=== PATIENT | male | born 1935 | race Caucasian/White ===

== ENCOUNTER 2018-05-12 22:10 | Outpatient (CLI) | payer MEDICARE, BC | END 2018-05-12 22:11 | disposition critical access hospital (66) | LOC: EMS 22:10 | PROVIDERS: ATTEND Surgery | DX: R41.82 Altered mental status, unspecified (principal); R47.81 Slurred speech | CPT/HCPCS: A0425; A0429 ==

== ENCOUNTER 2018-05-12 22:24 | Emergency (ER) | payer MEDICARE, BC ==
[2018-05-12 23:09] LABS: BASOPHILS % (AUTO) 0.6 %; EOSINOPHILS # (AUTO) 0.2 10^3/uL (0.0-0.7); HGB - HEMOGLOBIN 15.6 g/dL (14.0-18.0); LYMPHOCYTES # (AUTO) 2.8 10^3/uL (1.5-3.5); LYMPHOCYTES % (AUTO) 36.3 %; MEAN CORPUSCULAR HEMOGLOBIN 29.3 pg (27.0-31.0); MEAN CORPUSCULAR HGB CONC 33.8 g/dL (32.0-36.0); MEAN CORPUSCULAR VOLUME 86.8 fL (80.0-94.0); MEAN PLATELET VOLUME 6.7 fL (7.4-11.4); MONOCYTES % (AUTO) 13.1 %; NEUTROPHILS # (AUTO) 3.7 10^3/uL (1.5-6.6); PLT - PLATELET COUNT 285 10^3/uL (130-450); RED BLOOD COUNT 5.34 10^6/uL (4.70-6.10); RED CELL DISTRIBUTION WIDTH 14.5 % (12.0-15.0); WHITE BLOOD COUNT 7.6 x10^3/uL (4.8-10.8)
[2018-05-12 23:15] LABS: PT - PROTHROMBIN TIME 11.2 secs (9.9-12.6)
[2018-05-12 23:21] LABS: MUDS CUTOFF CONCENTRATIONS CUTOFF CONC BELOW:
[2018-05-12 23:24] LABS: ALBUMIN/GLOBULIN RATIO 1.3 (1.0-2.2); ALKALINE PHOSPHATASE 69 IU/L (42-121); ALT ALANINE AMINOTRANSFERASE 28 IU/L (10-60); AST ASPARTATE AMINOTRANSFERASE 27 IU/L (10-42); BILIRUBIN,TOTAL 0.7 mg/dL (0.2-1.0); BUN - BLOOD UREA NITROGEN 21 mg/dL (6-20); CALCIUM 9.5 mg/dL (8.5-10.3); CARBON DIOXIDE - CO2 28 mmol/L (21-32); CHLORIDE 97 mmol/L (101-111); GFR - MDRD 72 (>89); GLUCOSE 113 mg/dL (70-100); LIPASE 29 U/L (22-51); SALICYLATE < 6.0 mg/dL; SODIUM 132 mmol/L (135-145); TOTAL PROTEIN 7.2 g/dL (6.7-8.2)
--- NOTE | 2018-05-12 23:25 | ED Physician Documentation ---
History of Present Illness - Stated complaint Stated Complaint: GLF, GIBSON, AMS, SLURRED SPEECH - Chief complaint Chief Complaint: Neuro - History obtained from History obtained from: Patient, Family, EMS - Additonal information Additional information: 82-year-old male was brought to the emergency department for evaluation of a possible stroke. The patient was last normal at 9:30 PM. The patient's heard a thud and found the patient on the floor confused not answering questions and not using his left leg. Now, the patient is able to answer questions and has no motor or sensory weakness. The patient does have a history of recurrent headaches and had his normal headache today. No reports of chest pain, shortness of breath, fever, chills or pain. Presently the patient has no symptoms. No specific triggering factors. Symptoms resolved on their own. Symptoms when they occurred were severe. Review of Systems Constitutional: denies: Fever, Chills Eyes: reports: Loss of vision (The patient had an episode last week where he had vision loss in his left eye and was seen by ophthalmology and they were concerned about a TIA at that time. Presently the patient has no changes in his vision) Ears: denies: Ear pain Nose: denies: Congestion Throat: denies: Sore throat Cardiac: denies: Palpitations Respiratory: denies: Cough GI: denies: Abdominal Pain : denies: Dysuria Skin: denies: Laceration (s) Neurologic: reports: Focal weakness, Difficulty speaking, Confused, Headache. denies: Head injury PD PAST MEDICAL HISTORY - Past Medical History Past Medical History: Yes Cardiovascular: Hypertension Endocrine/Autoimmune: HyPOthyroidism - Past Surgical History Past Surgical History: Yes General: Hiatal hernia repair Cardiovascular: CABG - Present Medications Home Medications: Ambulatory Orders Medication Instructions Recorded Confirmed Donepezil [Aricept] 10 mg PO DAILY 05/12/18 05/12/18 Levothyroxine Sodium [Levoxyl] 150 mcg PO DAILY 05/12/18 05/12/18 Metoprolol Succinate 25 mg PO DAILY 05/12/18 05/12/18 Montelukast Sodium 10 mg PO DAILY 05/12/18 05/12/18 Temazepam [Restoril] 30 mg PO QPM 05/12/18 05/12/18 - Allergies Allergies/Adverse Reactions: Allergies Allergy/AdvReac Type Severity Reaction Status Date / Time lisinopril AdvReac Mild cough Verified 05/12/18 23:28 - Social History Does the pt smoke?: Yes Smoking Status: Former smoker Does the pt drink ETOH?: No Does the pt have substance abuse?: No - Immunizations Immunizations are current?: Yes PD ED PE NORMAL - General General: Alert and oriented X 3, No acute distress - HEENT HEENT: Atraumatic, PERRL, EOMI, Ears normal - Neck Neck: Supple, no meningeal sign - Cardiac Cardiac: RRR, Strong equal pulses - Respiratory Respiratory: No respiratory distress - Abdomen Abdomen: Soft, Non tender, Non distended - Derm Derm: Normal color, Warm and dry - Extremities Extremities: No deformity, Normal ROM s pain, No edema - Neuro Neuro: Alert and oriented X 3, outside rigger 2-12 intact, No motor deficit, No sensory deficit, Other (The patient's face is symmetric, the patient's tongue is midline and the patient has normal sensation in the face. Cranial nerves II through XII are intact. The patient has equal soft tile setter strength bilaterally. The patient's pronator drift was negative in the upper and lower extremities. The patient had normal sensation light touch in the upper and lower extremities. The patient's speech is slightly slurred but according to the she does not notice any abnormality in the patient's speech. The patient's memory appears intact). No: Normal speech Results - Vitals Vitals: Vital Signs - 24 hr 05/12/18 05/12/18 05/13/18 22:25 23:02 00:00 Temperature 36.7 C Heart Rate 72 62 61 Respiratory 15 18 16 Rate Blood Pressure 162/94 H 172/109 H 168/96 H O2 Saturation 98 98 96 Oxygen O2 Source Room air - Labs Labs: Laboratory Tests 05/12/18 05/12/18 05/12/18 23:04 23:04 23:04 WBC 7.6 RBC 5.34 Hgb 15.6 Hct 46.3 MCV 86.8 MCH 29.3 MCHC 33.8 RDW 14.5 Plt Count 285 MPV 6.7 L Neut # (Auto) 3.7 Lymph # (Auto) 2.8 Rapides # (Auto) 1.0 Eos # (Auto) 0.2 Baso # (Auto) 0.0 Absolute Nucleated RBC 0.01 Nucleated RBC % 0.1 PT 11.2 INR 1.0 APTT 28.4 Sodium Potassium Chloride Carbon Dioxide Anion Gap BUN Creatinine Estimated GFR (MDRD) Glucose Calcium Total Bilirubin AST ALT Alkaline Phosphatase CK-MB (CK-2) 2.3 Troponin I Total Protein Albumin Globulin Albumin/Globulin Ratio Lipase Urine Color Urine Clarity Urine pH Ur Specific [place] Urine Protein Urine Glucose (UA) Urine Ketones Urine Occult Blood Urine Nitrite Urine Bilirubin Urine Urobilinogen Ur Leukocyte Esterase Ur Microscopic Review Urine Culture Comments Salicylates Urine Opiates Screen Ur Oxycodone Screen Urine Methadone Screen Ur Propoxyphene Screen Acetaminophen Ur Barbiturates Screen Ur Tricyclics Screen Ur Phencyclidine Scrn Ur Amphetamine Screen U Methamphetamines Scrn U Benzodiazepines Scrn Urine Cocaine Screen U Cannabinoids Screen Ethyl Alcohol 05/12/18 05/12/18 05/12/18 23:04 23:04 23:15 WBC RBC Hgb Hct MCV MCH MCHC RDW Plt Count MPV Neut # (Auto) Lymph # (Auto) Rapides # (Auto) Eos # (Auto) Baso # (Auto) Absolute Nucleated RBC Nucleated RBC % PT INR APTT Sodium 132 L Potassium 4.2 Chloride 97 L Carbon Dioxide 28 Anion Gap 7.0 BUN 21 H Creatinine 1.0 Estimated GFR (MDRD) 72 L Glucose 113 H Calcium 9.5 Total Bilirubin 0.7 AST 27 ALT 28 Alkaline Phosphatase 69 CK-MB (CK-2) Troponin I < 0.04 Total Protein 7.2 Albumin 4.0 Globulin 3.2 Albumin/Globulin Ratio 1.3 Lipase 29 Urine Color YELLOW Urine Clarity CLEAR Urine pH 6.0 Ur Specific [place] 1.020 Urine Protein NEGATIVE Urine Glucose (UA) NEGATIVE Urine Ketones TRACE Urine Occult Blood NEGATIVE Urine Nitrite NEGATIVE Urine Bilirubin NEGATIVE Urine Urobilinogen 0.2 (NORMAL) Ur Leukocyte Esterase NEGATIVE Ur Microscopic Review NOT INDICATED Urine Culture Comments NOT INDICATED Salicylates < 6.0 Urine Opiates Screen NEGATIVE Ur Oxycodone Screen NEGATIVE Urine Methadone Screen NEGATIVE Ur Propoxyphene Screen NEGATIVE Acetaminophen < 10 L Ur Barbiturates Screen NEGATIVE Ur Tricyclics Screen NEGATIVE Ur Phencyclidine Scrn NEGATIVE Ur Amphetamine Screen NEGATIVE U Methamphetamines Scrn NEGATIVE U Benzodiazepines Scrn POSITIVE H Urine Cocaine Screen NEGATIVE U Cannabinoids Screen NEGATIVE Ethyl Alcohol < 5.0 - Rads (name of study) CT HEAD Radiology: Final report received PD MEDICAL DECISION MAKING - ED course ED course: The patient's findings, presentation and recent vision issues were discussed with the on-call stroke neurologist from [facility]. She agrees that this represents a TIA and currently since the patient's symptoms resolved he is not a candidate for TPA. She agrees with the plan for admission for further observation and workup. She recommends a CT angiogram of the head and neck. Currently, our facility does not have the capability to perform MRI, the neurologist does not feel that the patient requires urgent transfer for an MRI. She feels that the other studies can be performed now and the patient can have an MRI as an outpatient. She recommends contacting her back for any changes or any further questions. The findings and plan were discussed with the patient and family who understand and agree to the plan The case was discussed with the hospitalist Dr. Davis who accepts the patient onto her service - Sepsis Event Vital Signs: Vital Signs - 24 hr 05/12/18 05/12/18 05/13/18 22:25 23:02 00:00 Temperature 36.7 C Heart Rate 72 62 61 Respiratory 15 18 16 Rate Blood Pressure 162/94 H 172/109 H 168/96 H O2 Saturation 98 98 96 Oxygen O2 Source Room air Departure - Departure Disposition: ED Place in Observation Clinical Impression: TIA (transient ischemic attack) Condition: Good
[2018-05-12 23:26] LABS: ACETAMINOPHEN < 10 ug/mL (10-30)
[2018-05-12 23:26] LABS: BILIRUBIN,URINE NEGATIVE (NEGATIVE); GLUCOSE, URINE (UA) NEGATIVE (NEGATIVE); KETONES,URINE (UA) TRACE mg/dL (NEGATIVE); LEUKOCYTE ESTERASE, URINE NEGATIVE (NEGATIVE); NITRITE,URINE NEGATIVE (NEGATIVE); OCCULT BLOOD,URINE NEGATIVE (NEGATIVE); PROTEIN,URINE NEGATIVE (NEGATIVE); UROBILINOGEN,URINE 0.2 (NORMAL) E.U./dL (NORMAL)
[2018-05-12 23:27] LABS: CLARITY,URINE CLEAR (CLEAR)
[2018-05-12 23:37] LABS: AMPHETAMINE SCREEN,URINE NEGATIVE (NEGATIVE); BENZODIAZEPINES SCREEN, URINE POSITIVE (NEGATIVE); COCAINE SCREEN URINE NEGATIVE (NEGATIVE); METHADONE SCREEN, URINE NEGATIVE (NEGATIVE); METHAMPHETAMINES SCREEN, URINE NEGATIVE (NEGATIVE); OPIATE SCREEN, URINE NEGATIVE (NEGATIVE); OXYCODONE SCREEN, URINE NEGATIVE (NEGATIVE); PROPOXYPHENE SCREEN, URINE NEGATIVE (NEGATIVE); TRICYCLIC ANTIDEPRESSANT,URINE NEGATIVE (NEGATIVE)
[2018-05-13] MEDS ORDERED: IOPAMIDOL-300 100 ML VIAL ONE (00:52)
[2018-05-13] MEDS ORDERED: IOPAMIDOL-300 100 ML VIAL IVP ONE (01:37)
[2018-05-13] MEDS ORDERED: HEPARIN 25000UNITS/500ML (D5W) 25,000 UNIT/500 ML BAG IV SCH (03:00)
[2018-05-13 04:39] VITALS: BP 162/93
--- NOTE | 2018-05-14 15:32 | CT Report ---
Reason: TIA symptoms Procedure Date: 05/13/2018 Accession Number: [id number] / [id number] Procedure: CT - Neck Angio CPT Code: FULL RESULT: EXAM: CT ANGIOGRAM HEAD AND NECK. CT SCAN HEAD WITH CONTRAST. EXAM DATE:05/13/2018 01:15 AM. CLINICAL HISTORY:Speech difficulty, left lower extremity weakness, now resolved. COMPARISON:None. TECHNIQUE: Routine axial helical CTA imaging was performed from the aortic arch through the [place] of [place]. Routine axial CT imaging of the head was performed prior to and following contrast administration. Reconstructions: Routine multiplanar 3D MIP reconstructions. IV contrast: ISOVUE 300 80mL. NASCET Criteria are used for stenosis measurements. In accordance with CT protocol optimization, one or more of the following dose reduction techniques were utilized for this exam: automated exposure control, adjustment of mA and/or KV based on patient size, or use of iterative reconstructive technique. FINDINGS: CT SCAN HEAD with contrast: No abnormal enhancement. CT ANGIOGRAM EXTRACRANIAL CIRCULATION: The visualized arch is unremarkable. Great vessels are patent and unremarkable. Right Carotid: Mild calcification about the right carotid bulb without stenosis. Left Carotid: Mild calcification about the left carotid bulb without stenosis. Vertebrals: Vertebral arteries are patent throughout the neck, right is larger than the left. Left arises directly from the aortic arch, a common normal variant. CT ANGIOGRAM INTRACRANIAL CIRCULATION: Dominant right vertebral artery. Basilar artery and both posterior cerebral arteries are patent. Posterior communicating arteries are not seen bilaterally. Atherosclerotic calcification of the right carotid siphon. There is roughly 50% stenosis of the supraclinoid right ICA. Right MCA and ORALIA vessels are patent and unremarkable. There is a patent anterior communicating artery. Best appreciated on series 4 image 565 is a filling defect within the proximal intracavernous left ICA. This is nonocclusive and measures 9.6 mm AP by 3 mm transverse. An additional, smaller endoluminal filling defect is seen or distally on image 568, measuring roughly 4 mm in diameter. There is atherosclerotic narrowing of the supraclinoid left ICA without definite flow-limiting stenosis. There is a small outpouching of the supraclinoid left ICA measuring roughly 2.5 mm, infundibulum versus aneurysm. Left MCA is unremarkable. No M2 branch occlusion appreciated. The dural venous sinuses are patent. Other: A neurostimulator device is seen within the cervical spinal canal, eccentric to the left. Superiormost aspect opposite the level of C1. IMPRESSION: CT SCAN HEAD: No abnormal enhancement. CT ANGIOGRAM NECK: 1. No carotid or vertebral artery stenosis in the neck. No findings concerning for dissection. Left vertebral artery arises directly from the aortic arch, a common normal variant. 2. Neurostimulator device present within the cervical spinal canal CT ANGIOGRAM HEAD: 1. Roughly 50% stenosis supraclinoid right ICA. Right MCA appears unremarkable. 2. Best appreciated on series 4 image 565 is a filling defect within the proximal intracavernous left ICA, presumed thrombus. This is nonocclusive and measures 9.6 mm AP by 3 mm transverse. An additional, smaller endoluminal filling defect is seen or distally on image 568, measuring roughly 4 mm in diameter. There is atherosclerotic narrowing of the supraclinoid left ICA without definite flow-limiting stenosis. 3. There is a small outpouching of the supraclinoid left ICA measuring roughly 2.5 mm, infundibulum versus aneurysm. Differentiation not possible given the resolution of this technique. 4. Left MCA is unremarkable. No M2 branch occlusion appreciated. RADIA The above findings of left ICA intraluminal thrombus were discussed with Dr. Salazar by Dr. Alan Cobos at 02:24 hrs on 05/13/18.
--- NOTE | 2018-05-14 15:36 | CT Report ---
Reason: AMS Procedure Date: 05/12/2018 Accession Number: [id number] / [id number] Procedure: CT - Head W/O Stroke Protocol CPT Code: FULL RESULT: EXAM: CT HEAD EXAM DATE: 05/12/2018 10:38 PM. CLINICAL HISTORY: Confusion and right lower extremity weakness, now resolved. COMPARISON: None. TECHNIQUE: Multiaxial CT images were obtained from the foramen magnum to the vertex. Reformats: Sagittal and coronal. IV contrast: None. In accordance with CT protocol optimization, one or more of the following dose reduction techniques were utilized for this exam: automated exposure control, adjustment of mA and/or KV based on patient size, or use of iterative reconstructive technique. FINDINGS: Parenchyma: Questionable small, old cortical infarct right paracentral lobule. Old lacunar infarcts within the left putamen, anterior limb internal capsule on the left. Old lacunar infarct anterior limb right internal capsule. No hemorrhage. Extraaxial Spaces: Normal for age. No subdural or epidural collections identified. Ventricles: Normal in size and position. Sinuses and Orbits: Imaged paranasal sinuses, orbits, and mastoids show no significant abnormality. Bones: No evidence of fracture or calvarial defect. Other: None. IMPRESSION: Questionable small, old cortical infarct right paracentral lobule. Old lacunar infarcts within the left putamen, anterior limb internal capsule on the left. Old lacunar infarct anterior limb right internal capsule. No hemorrhage. ASPECTS 9 bilaterally. RADIA The above findings were discussed with Chaka Salazar by Dr. Alan Cobos at 23:08 hrs on 05/12/18.
== END 2018-05-13 05:42 | disposition short-term general hospital (02) ==
LOC: EDUNIT# → ED 22:24
DX: G45.9 Transient cerebral ischemic attack, unspecified (principal); R94.31 Abnormal electrocardiogram [ECG] [EKG]; I10 Essential (primary) hypertension; E03.9 Hypothyroidism, unspecified; Z95.1 Presence of aortocoronary bypass graft; Z87.891 Personal history of nicotine dependence
CPT/HCPCS: 36415; 70450; 70496; 70498; 71045; 80053; 81003; 82553; 83690; 84484; 85025; 85610; 85730; 93005; 96365; 96366; 99284; 99285; Q9967; 80306; 80307; 80320; 80329; 81001; 82550; 87086

== ENCOUNTER 2021-04-13 15:33 | Outpatient (CLI) | payer MEDICARE, BC | END 2021-04-13 15:34 | disposition home or self-care (01) | LOC: LAB.N 15:33 | PROVIDERS: ATTEND Family Medicine | DX: Z79.01 Long term (current) use of anticoagulants (principal); Z53.9 Procedure and treatment not carried out, unspecified reason ==

== ENCOUNTER 2021-05-22 11:17 | Outpatient (CLI) | payer MEDICARE, BC | END 2021-05-22 11:18 | disposition home or self-care (01) | LOC: LAB.N 11:17 | PROVIDERS: ATTEND Family Medicine | DX: Z79.01 Long term (current) use of anticoagulants (principal) | CPT/HCPCS: 85610 ==

== ENCOUNTER 2021-06-23 14:18 | Outpatient (CLI) | payer MEDICARE, BC | END 2021-06-23 14:19 | disposition home or self-care (01) | LOC: LAB.N 14:18 | PROVIDERS: ATTEND Family Medicine | DX: Z79.01 Long term (current) use of anticoagulants (principal) | CPT/HCPCS: 36416; 85610 ==

== ENCOUNTER 2021-07-30 13:35 | Outpatient (CLI) | payer MEDICARE, BC | END 2021-07-30 13:36 | disposition critical access hospital (66) | LOC: EMS 13:35 | DX: S81.812A Laceration without foreign body, left lower leg, initial encounter (principal); W01.198A Fall on same level from slipping, tripping and stumbling with subsequent striking against other object, initial encounter; Y93.E1 Activity, personal bathing and showering; Y92.002 Bathroom of unspecified non-institutional (private) residence as the place of occurrence of the external cause | CPT/HCPCS: A0425; A0429 ==

== ENCOUNTER 2021-07-30 13:56 | Emergency (ER) | payer MEDICARE, BC ==
--- NOTE | 2021-07-30 14:17 | ED Physician Documentation ---
History of Present Illness - Stated complaint Stated Complaint: L LEG LAC - Additonal information Additional information: Only 16 years [id number] male who has a history of previous CVA as well as [place] to the emergency department after a ground-level fall. He was in the show er and slipped on the wet floor. He sustained a rather large and deep laceration of his left lower extremity on the metal ridge of the shower floor. He has full recall of the events. Did not lose consciousness. Denies neck or head pain. He is anticoagulated on warfarin secondary to the above-mentioned medical history. Review of Systems Constitutional: denies: Fever, Chills Eyes: reports: Reviewed and negative Ears: reports: Reviewed and negative Nose: reports: Reviewed and negative Throat: reports: Reviewed and negative Cardiac: reports: Reviewed and negative Respiratory: reports: Reviewed and negative GI: reports: Reviewed and negative : reports: Reviewed and negative Skin: reports: Laceration (s) (left lower leg) Musculoskeletal: reports: Extremity pain (left lower leg). denies: Neck pain, Back pain Neurologic: denies: Generalized weakness, Focal weakness, Numbness PD PAST MEDICAL HISTORY - Past Medical History Cardiovascular: Hypertension Endocrine/Autoimmune: HyPOthyroidism - Past Surgical History Past Surgical History: Yes General: Hiatal hernia repair Cardiovascular: CABG - Present Medications Home Medications: Ambulatory Orders Medication Instructions Recorded Confirmed Donepezil [Aricept] 10 mg PO DAILY 05/12/18 05/12/18 Levothyroxine Sodium [Levoxyl] 150 mcg PO DAILY 05/12/18 05/12/18 Metoprolol Succinate 25 mg PO DAILY 05/12/18 05/12/18 Montelukast Sodium 10 mg PO DAILY 05/12/18 05/12/18 Temazepam [Restoril] 30 mg PO QPM 05/12/18 05/12/18 HYDROcod/ACETAM 5/325 [Wolverine 5/325] 1 tablet PO BID PRN #10 tablet 07/30/21 cephALEXin [Keflex] 500 mg PO Q6H #28 cap 07/30/21 - Allergies Allergies/Adverse Reactions: Allergies Allergy/AdvReac Type Severity Reaction Status Date / Time lisinopril AdvReac Mild cough Verified 07/30/21 14:24 - Social History Does the pt smoke?: Yes Smoking Status: Former smoker Does the pt drink ETOH?: No Does the pt have substance abuse?: No - Immunizations Immunizations are current?: Yes PD ED PE EXPANDED - General General: No acute distress - Cardiac Cardiac: Regular Rate, Radial strong equal, Pedal strong equal, Other (well healed sternotomy scar). No: Murmur Present - Respiratory Respiratory: Clear to ausultation nakita. No: Distress, Stridor - Abdomen Abdomen: Normal Bowel sounds. No: Tender to palpation - Back Back: Normal exam. No: Vertebral tenderness - Derm Derm: Laceration(s) (large V shaped laceration/avusion to extend thru SQ fat to the periosteum of the tibial of the lower leg) - Extremities Extremities: Pedal Pulses Present (1+ pedal pulse bilaterally; warm foot. BRISK cap refill) Results - Vitals Vitals: Vital Signs - 24 hr 07/30/21 14:05 Temperature 36.6 C Heart Rate 65 Respiratory 15 Rate Blood Pressure 119/67 O2 Saturation 99 Oxygen O2 Source Room air - Labs Labs: Laboratory Tests 07/30/21 07/30/21 07/30/21 14:27 14:27 14:27 WBC 7.8 RBC 4.71 Hgb 13.8 L Hct 42.0 MCV 89.2 MCH 29.3 MCHC 32.9 RDW 15.3 H Plt Count 211 MPV 8.8 Neut # (Auto) 5.6 Lymph # (Auto) 1.2 L Kent # (Auto) 0.9 Eos # (Auto) 0.1 Baso # (Auto) 0.0 Absolute Nucleated RBC 0.00 Nucleated RBC % 0.0 PT 27.1 H INR 2.4 H Sodium 134 L Potassium 4.6 Chloride 99 L Carbon Dioxide 23 Anion Gap 12.0 BUN 19 Creatinine 1.1 Estimated GFR (MDRD) 64 L Glucose 128 H Calcium 9.4 - Rads (name of study) CT head Radiology: Final report received (no acute intracranial defects) Cervical CT Radiology: Final report received (no fractures) left knee Radiology: Final report received (degenerative changes. no fracture) left tib fib Radiology: Final report received (no fracture) Procedures - Laceration (location) left lower leg Length in cm: 35 Wound type: Irregular, Flap, Into subcut fat, Into muscle, Contaminated, Exposure of bone Neurovascular status: Sensory intact Anesthesia: Lidocaine 1% Wound preparation: Hibiclens, Irrigated copiously NS, Debrided extensively, Wound explored, debridement of wound edges (traumatic laceration/avulsion), Multiple flaps aligned, Extensive undermining Skin layer closure: Carlos (28 placed) Other: Patient tolerated well, No complications, Dressing applied, Tetanus booster given PD MEDICAL DECISION MAKING - ED course Complexity details: reviewed results, d/w patient ED course: 85-year-old male presents the emergency department after ground-level fall in the shower when she slipped and fell to the floor. He denies that there was any syncope or fainting episode. He is anticoagulated on Coumadin secondary to history of previous CVA as well as a CABG. He presents rather well-appearing with no obvious focal neuro deficits his neurological exam is unremarkable. CT of the head and neck without acute fractures or intracranial findings. He did present with a very large laceration and deep tissue defect to the left lower leg extending to the periosteum of the lower tibia. X-ray of the knee and the tib-fib did not show any acute fractures. The deep tissue defect was discussed briefly with Dr. Mcmullen who did not recommend surgical closure in the OR. Patient was given 1 g of Ancef and after appropriate local anesthesia we were able to close the defect using a total of 28 carlos. This wound was ultimately covered with Mepitel. This wound was discussed at length with the patient and he understands the high risk for infection Rx for keflex was levied as well as limited Wolverine. pt was able to able to ambulate easly in the ED, a walker was given. pt advised close f/u with pcp; will require a wound referral. Advised to have dressing changed in 4 days, if unable to see pcp, will return to the ED. Emergent and sooner return precautions discussed I am prescribing a short course of short-acting opioid pain medication for this patient. I have reviewed the patients [employer] ATTENDANT and no concerning findings were noted. I have discussed that the opioids are for short term therapy only, and will not be refilled from the ED. Departure - Departure Disposition: 01 Home, Self Care Clinical Impression: Laceration of left leg Qualifiers: Encounter type: initial encounter Qualified Code(s): S81.812A - Laceration without foreign body, left lower leg, initial encounter Condition: Stable Record reviewed to determine appropriate education?: Yes Follow-Up: Lakhwinder Meyer MD [Primary Care Provider] - Prescriptions: cephALEXin [Keflex] 500 mg PO Q6H #28 cap HYDROcod/ACETAM 5/325 [Wolverine 5/325] 1 tablet PO BID PRN #10 tablet PRN Reason: Pain Comments: Alban traore were seen in the ER today for a very deep laceration and wound to your left lower leg that you got when you fell in the shower. The CT of your head and neck do not show any broken bones. The x-ray of your left knee and your left lower leg do not show any broken bones. This is a very large tissue defect that will take multiple weeks if not a few months to heal. It is at high risk of infection. You were given an injection o f an antibiotic today but it is important that you fill the prescription for the Keflex tomorrow and begin taking 4 times daily for the next week. The dressing that is in place should remain in place until Tuesday. I would like you to see your primary care doctor. He needs to make a referral for you to be seen at wound therapy. If you are unable to see your primary doctor you can return to the emergency department for a wound check but your primary doctor will still need to make the referral. Your prescriptions have been sent electronically to the [facility] in [place] I am prescribing a short course of narcotic pain medication for you. These are potentially dangerous and addictive medications that should be used carefully. These medications may constipate you. Take an [id number] stool softener (docusate) twice daily with plenty of water while taking these medications. If you go 24 hours without a bowel movement, take [id number] miralax, per package instructions. Do not drink or drive while taking these medications. If you received narcotic or sedating medications while in the emergency department, do not drive for 24 hours. Store this medication in a safe, secure place and out of reach of children. It is a violation of federal law to give or sell this medication to another person or to use in a manner other than prescribed. The ED will not refill narcotic prescriptions, including prescriptions lost or stolen. To dispose of unwanted medications: 1. [facility] [address] in [place] has a medication drop box. They accept prescription medications (in pill form) Tuesday through Tuesday 9:00 a.m. to 5:00 p.m. 2. The [facility] accepts prescription medications (in pill form only) for disposal year round. Call for more information. 3. Contact the [facility] for the next [facility] sponsored prescription drug collection event. , [phone], or [phone]; Note that many narcotic pain relievers also contain Tylenol/acetaminophen. Please ensure that your total dose of acetaminophen from all sources does not exceed 3 g (3000 mg) per day.
[2021-07-30 14:34] LABS: BASOPHILS % (AUTO) 0.3 %; EOSINOPHILS # (AUTO) 0.1 10^3/uL (0.0-0.7); EOSINOPHILS % (AUTO) 0.8 %; HGB - HEMOGLOBIN 13.8 g/dL (14.0-18.0); LYMPHOCYTES # (AUTO) 1.2 10^3/uL (1.5-3.5); LYMPHOCYTES % (AUTO) 15.7 %; MEAN CORPUSCULAR HEMOGLOBIN 29.3 pg (27.0-31.0); MEAN CORPUSCULAR HGB CONC 32.9 g/dL (32.0-36.0); MEAN CORPUSCULAR VOLUME 89.2 fL (80.0-94.0); MEAN PLATELET VOLUME 8.8 fL (7.4-11.4); MONOCYTES # (AUTO) 0.9 10^3/uL (0.0-1.0); MONOCYTES % (AUTO) 11.2 %; NEUTROPHILS # (AUTO) 5.6 10^3/uL (1.5-6.6); NEUTROPHILS % (AUTO) 71.4 %; PLT - PLATELET COUNT 211 10^3/uL (130-450); RED BLOOD COUNT 4.71 10^6/uL (4.70-6.10); RED CELL DISTRIBUTION WIDTH 15.3 % (12.0-15.0); WHITE BLOOD COUNT 7.8 x10^3/uL (4.8-10.8)
[2021-07-30 14:40] LABS: INR 2.4 (0.8-1.2); PT - PROTHROMBIN TIME 27.1 secs (9.9-12.6)
[2021-07-30 14:43] LABS: CALCIUM 9.4 mg/dL (8.5-10.3); CREATININE 1.1 mg/dL (0.6-1.2); POTASSIUM 4.6 mmol/L (3.5-5.0)
[2021-07-30] MEDS: BUFFERED LIDOCAINE 10 ML SYRINGE SUBQ STA (15:10)
[2021-07-30] MEDS: ceFAZolin 1 GM VIAL IM STA (15:15)
[2021-07-30] MEDS: HYDROmorphone 1 MG/ML CARPUJECT IVP STA (15:15)
[2021-07-30] MEDS: TETANUS/DIPHTHERIA/PERTUSSIS 0.5 ML SYRINGE IM ONE (15:41)
--- NOTE | 2021-07-30 15:55 | CT Report ---
PROCEDURE: CERVICAL SPINE WO INDICATIONS: anticoagulated; fall TECHNIQUE: Noncontrast 3 mm thick sections acquired from the skull base to the T4 level. Sagittal and coronal r eformats were then constructed. For radiation dose reduction, the following was used: automated exp osure control, adjustment of mA and/or kV according to patient size. COMPARISON: None. FINDINGS: Image quality: Excellent. Bones: No fractures or dislocations. Visualized superior ribs are intact. There are multilevel deg enerative changes of the cervical spine with disc space narrowing, osteophytes, and multilevel forami nal stenosis. A spinal stimulator lead extends into the cervical spine to the level of C2. Soft tissues: Prevertebral soft tissues are normal in thickness. No paravertebral hematomas. No ap ical pneumothoraces. The carotid arteries have atherosclerotic calcifications. IMPRESSION: 1. No acute rheumatic abnormality of the cervical spine. 2. Multilevel spondylosis of the cervical spine. Reviewed by: Ronn Ridley on 07/30/2021 3:54 PM PST Approved by: Ronn Ridley on 07/30/2021 3:54 PM PST Station ID: [id number]
--- NOTE | 2021-07-30 15:58 | CT Report ---
PROCEDURE: HEAD WO INDICATIONS: anticoagulated; fall TECHNIQUE: Noncontrast 4.5 mm thick angled axial sections acquired from the foramen magnum to the vertex. For r adiation dose reduction, the following was used: automated exposure control, adjustment of mA and/or kV according to patient size. COMPARISON: None. FINDINGS: Image quality: Excellent. CSF spaces: Basal cisterns are patent. No extra-axial fluid collections. Ventricles are normal in size and shape. Brain: No midline shift. No intracranial masses or hemorrhage. Thayer-white matter interface is norm al. Subcortical and periventricular hypodensities are consistent with microvascular ischemic disease . Microvascular ischemic disease and age-related cerebral volume loss. Skull and face: Calvarium and visualized facial bones are intact, without suspicious lesions. Sinuses: Visualized sinuses and mastoids are clear. IMPRESSION: 1. No acute intracranial abnormality. 2. Microvascular ischemic disease and age-related cerebral volume loss. Reviewed by: Ronn Ridley on 07/30/2021 3:56 PM PST Approved by: Ronn Ridley on 07/30/2021 3:56 PM PST Station ID: [id number]
--- NOTE | 2021-07-30 16:00 | XRAY Report ---
PROCEDURE: Knee 3 View LT INDICATIONS: anticoagulated fall TECHNIQUE: 3 views of the left knee(s) were acquired. COMPARISON: None. FINDINGS: Bones: There are degenerative changes of the left knee. Calcifications in the articular space consis tent with chondrocalcinosis. Surgical clips along the medial left knee. No fractures or dislocations. No suspicious bony lesions. Soft tissues: No joint effusion. Vasculature has atherosclerotic calcifications. IMPRESSION: Degenerative changes of the left knee. No acute abnormality. Reviewed by: Ronn Ridley on 07/30/2021 3:58 PM PST Approved by: Ronn Ridley on 07/30/2021 3:58 PM PST Station ID: [id number]
--- NOTE | 2021-07-30 16:01 | XRAY Report ---
PROCEDURE: Tib/Fib LT INDICATIONS: pain; fall TECHNIQUE: 2 views of the tibia and fibula were acquired. COMPARISON: None FINDINGS: Bones: No fractures or dislocations. No suspicious bony lesions. Soft tissues: No suspicious soft tissue calcifications or masses. No radiopaque foreign bodies. Sof t tissue injury over the left distal leg is noted. IMPRESSION: Soft tissue injury of the distal left leg with no radiopaque foreign bodies. Reviewed by: Ronn Ridley on 07/30/2021 4:00 PM PST Approved by: Ronn Ridley on 07/30/2021 4:00 PM [facility] Station ID: [id number]
[2021-07-30] MEDS: HYDROmorphone 1 MG/ML CARPUJECT IM STA (16:03)
[2021-07-30 16:26] VITALS: BP 155/88
== END 2021-07-30 18:03 | disposition home or self-care (01) ==
LOC: EDUNIT# → ED 13:56
DX: S81.812A Laceration without foreign body, left lower leg, initial encounter (principal); W01.0XXA Fall on same level from slipping, tripping and stumbling without subsequent striking against object, initial encounter; Y93.E1 Activity, personal bathing and showering; Y92.002 Bathroom of unspecified non-institutional (private) residence as the place of occurrence of the external cause; Z79.01 Long term (current) use of anticoagulants; Z87.891 Personal history of nicotine dependence
CPT/HCPCS: 13121; 13122; 36415; 70450; 72125; 73562; 73590; 80048; 85025; 85610; 90471; 90715; 96372; 96374; 99283; 99284; J1170

== ENCOUNTER 2021-08-03 13:07 | Emergency (ER) | payer MEDICARE, BC ==
[2021-08-03 13:16] VITALS: BP 110/86
--- NOTE | 2021-08-03 15:13 | ED Physician Documentation ---
PD HPI LOWER EXT INJURY - Stated complaint Stated Complaint: LT LEG INJ SWELLING - Chief complaint Chief Complaint: Ext Problem - History obtained from History obtained from: Patient - Additional information Additional information: 85-year-old gentleman had a left leg injury about 5 days ago with a complicated anterior left knight laceration that was closed. He went to walk-in clinic today for dressing replacement and was referred to the emergency department because they felt it looks bad. He denies increased pain, has mild drainage from the wound. No fevers. Review of Systems Constitutional: reports: Reviewed and negative Eyes: reports: Reviewed and negative Ears: reports: Reviewed and negative Nose: reports: Reviewed and negative PD PAST MEDICAL HISTORY - Past Medical History Cardiovascular: Hypertension Endocrine/Autoimmune: HyPOthyroidism - Past Surgical History Past Surgical History: Yes General: Hiatal hernia repair Cardiovascular: CABG - Present Medications Home Medications: Ambulatory Orders Medication Instructions Recorded Confirmed Donepezil [Aricept] 10 mg PO DAILY 05/12/18 05/12/18 Levothyroxine Sodium [Levoxyl] 150 mcg PO DAILY 05/12/18 05/12/18 Metoprolol Succinate 25 mg PO DAILY 05/12/18 05/12/18 Montelukast Sodium 10 mg PO DAILY 05/12/18 05/12/18 Temazepam [Restoril] 30 mg PO QPM 05/12/18 05/12/18 HYDROcod/ACETAM 5/325 [[place] 5/325] 1 tablet PO BID PRN #10 tablet 07/30/21 cephALEXin [Keflex] 500 mg PO Q6H #28 cap 07/30/21 - Allergies Allergies/Adverse Reactions: Allergies Allergy/AdvReac Type Severity Reaction Status Date / Time lisinopril AdvReac Mild cough Verified 08/03/21 13:13 - Social History Does the pt smoke?: Yes Smoking Status: Former smoker Does the pt drink ETOH?: No Does the pt have substance abuse?: No - Immunizations Immunizations are current?: Yes PD ED PE NORMAL - Vitals Vital signs reviewed: Yes - General General: Alert and oriented X 3, No acute distress - Extremities Extremities: Other (He has a complicated laceration of the anterior left lower extremity that is closed with ryan. There is no dehiscence. He does have significant venous stasis changes. He does have good pedal pulses. No evidence of infection.) - Neuro Neuro: Alert and oriented X 3, Normal speech Results - Vitals Vitals: Vital Signs - 24 hr 08/03/21 13:13 Temperature 36.5 C Heart Rate 62 Respiratory 16 Rate Blood Pressure 110/86 H O2 Saturation 98 Oxygen O2 Source Room air PD MEDICAL DECISION MAKING - ED course ED course: This is a angelito 85-year-old gentleman who has a complicated wound of the left lower extremity that is healing well but anticipate a alex course given his age, history of vascular disease and the extent of his and location of the wound. A dressing was placed but advised that he call his primary care physician for wound care referral. Departure - Departure Disposition: Home, Self Care Clinical Impression: Laceration of left leg Qualifiers: Encounter type: initial encounter Qualified Code(s): S81.812A - Laceration without foreign body, left lower leg, initial encounter Condition: Good Record reviewed to determine appropriate education?: Yes Follow-Up: Lakhwinder Meyer MD [Primary Care Provider] - Comments: I do not see anything to worry some about the leg right now. Call Dr. Meyer's office and I would request a referral to wound care. Return as needed. Keep it elevated and do not bear weight until advised it is safe to do so.
== END 2021-08-03 15:25 | disposition home or self-care (01) ==
LOC: ED 13:07
DX: S81.812A Laceration without foreign body, left lower leg, initial encounter (principal); X58.XXXA Exposure to other specified factors, initial encounter; R22.42 Localized swelling, mass and lump, left lower limb; I87.8 Other specified disorders of veins; I10 Essential (primary) hypertension; Z87.891 Personal history of nicotine dependence
CPT/HCPCS: 99282; 99283

== ENCOUNTER 2021-08-18 15:04 | Outpatient (CLI) | payer MEDICARE, BC | END 2021-08-18 15:05 | disposition home or self-care (01) | LOC: LAB 15:04 | PROVIDERS: ATTEND Family Medicine | DX: Z79.01 Long term (current) use of anticoagulants (principal) | CPT/HCPCS: 36416; 85610 ==

== ENCOUNTER 2021-09-09 15:34 | Outpatient (CLI) | payer MEDICARE, BC ==
--- NOTE | 2021-09-09 16:24 | XRAY Report ---
PROCEDURE: Chest 2 View X-Ray INDICATIONS: COUGH TECHNIQUE: 2 view(s) of the chest. COMPARISON: May 12, 2018. FINDINGS: SUPPORT DEVICES: Sternotomy wires are well. LUNGS/PLEURA: Faint density in the right upper/midlung zone, which may reflect scarring/atelectasis. Mildly coarsened interstitial markings. No pleural effusion or space-occupying pneumothorax. MEDIASTINUM: The cardiomediastinal silhouette is within normal limits. BONES/SOFT TISSUES: No acute abnormality. IMPRESSION: 1.Faint density in the right upper/midlung zone, which may reflect scar/atelectasis. A developing pne umonic infiltrate cannot be excluded. Reviewed by: Jonathan Birmingham MD on 09/09/2021 4:22 PM PST Approved by: Jonathan Birmingham MD on 09/09/2021 4:22 PM PST Station ID: [id number]
== END 2021-09-09 15:35 | disposition home or self-care (01) ==
LOC: DI 15:34
PROVIDERS: ATTEND Family Medicine
DX: I10 Essential (primary) hypertension (principal); R91.8 Other nonspecific abnormal finding of lung field

== ENCOUNTER 2021-10-09 13:38 | Outpatient (CLI) | payer MEDICARE, BC ==
--- NOTE | 2021-10-09 16:44 | XRAY Report ---
PROCEDURE: Chest 2 View X-Ray INDICATIONS: PNEUMONIA TECHNIQUE: 2 view(s) of the chest. COMPARISON: 05/12/2018, 09/09/2021 FINDINGS: Surgical changes and devices: Multiple median sternotomy wires are intact. Neurostimulator leads are again noted and extend along the imaged portions of the lower cervical and thoracolumbar spine. Lungs and pleura: Persistent diffuse interstitial prominence, likely chronic in etiology. No pneumoth orax . No new focal consolidations. Persistent patchy left basilar and medial right basilar airspace opacities. Likely subsegmental atelectasis or scarring of the periphery right midlung zone. No substa ntial pleural effusion. Mediastinum: Mediastinal contours are normal. Heart size is normal. Bones and chest wall: No suspicious bony abnormalities. Soft tissues appear unremarkable. IMPRESSION: 1. Persistent patchy bibasilar airspace opacities without focal consolidation or new airspace opaciti es. 2. Persistent interstitial prominence likely chronic in etiology and may reflect background chronic i nterstitial lung disease. Recommend clinical correlation for resolution of symptoms. Consider short interval follow-up chest ra diograph in 4 weeks to document return to baseline exam. If findings do not significantly changed, fu rther evaluation with cross-sectional imaging may be considered. Reviewed by: Vinod Encinas MD on 10/09/2021 4:43 PM PST Approved by: Vinod Encinas MD on 10/09/2021 4:43 PM PST Station ID: [id number]
== END 2021-10-09 13:39 | disposition home or self-care (01) ==
LOC: DI 13:38
PROVIDERS: ATTEND Family Medicine
DX: J18.9 Pneumonia, unspecified organism (principal); R91.8 Other nonspecific abnormal finding of lung field

== ENCOUNTER 2021-12-31 14:25 | Emergency (ER) | payer MEDICARE, BC ==
[2021-12-31 14:58] LABS: BASOPHILS % (AUTO) 0.3 %; EOSINOPHILS # (AUTO) 0.1 10^3/uL (0.0-0.7); EOSINOPHILS % (AUTO) 0.5 %; HCT - HEMATOCRIT 40.1 % (42.0-52.0); HGB - HEMOGLOBIN 13.5 g/dL (14.0-18.0); LYMPHOCYTES # (AUTO) 1.6 10^3/uL (1.5-3.5); LYMPHOCYTES % (AUTO) 17.1 %; MEAN CORPUSCULAR HEMOGLOBIN 28.8 pg (27.0-31.0); MEAN CORPUSCULAR HGB CONC 33.7 g/dL (32.0-36.0); MEAN CORPUSCULAR VOLUME 85.7 fL (80.0-94.0); MEAN PLATELET VOLUME 8.8 fL (7.4-11.4); MONOCYTES % (AUTO) 10.7 %; NEUTROPHILS # (AUTO) 6.7 10^3/uL (1.5-6.6); NEUTROPHILS % (AUTO) 70.9 %; PLT - PLATELET COUNT 255 10^3/uL (130-450); RED BLOOD COUNT 4.68 10^6/uL (4.70-6.10); WHITE BLOOD COUNT 9.4 x10^3/uL (4.8-10.8)
[2021-12-31 15:19] LABS: ALBUMIN 3.7 g/dL (3.2-5.5); ALBUMIN/GLOBULIN RATIO 1.2 (1.0-2.2); BILIRUBIN,TOTAL 1.1 mg/dL (0.2-1.0); CALCIUM 9.3 mg/dL (8.5-10.3); CREATININE 1.3 mg/dL (0.6-1.2); POTASSIUM 4.3 mmol/L (3.5-5.0); TOTAL PROTEIN 6.8 g/dL (6.7-8.2)
[2021-12-31 15:23] LABS: INR 3.2 (0.8-1.2); PT - PROTHROMBIN TIME 35.1 secs (9.9-12.6)
[2021-12-31 15:31] LABS: PARTIAL THROMBOPLASTIN TIME 43.2 secs (24.9-33.3)
--- NOTE | 2021-12-31 16:10 | ED Physician Documentation ---
History of Present Illness - Stated complaint Stated Complaint: STROKE LIKE SYMPTOMS - Chief complaint Chief Complaint: Neuro - History obtained from History obtained from: Patient, Family - History of Present Illness Timing: Today Pain level max: 0 Pain level now: 0 - Additonal information Additional information: 86-year-old male who is brought in by his today for generalized weakness. She states that today when he got up to get out of bed he seemed weaker than usual and his legs were trembling. There was no focal neurological deficits. She states that he seemed very unsteady and off balance. She states similar symptoms about 5 years ago when he had a "stroke". He also had a mild headache today. No fevers. No chills. No nausea or vomiting. Currently asymptomatic. She states he is currently at his baseline. Unclear how long the symptoms lasted. Review of Systems Constitutional: denies: Fever, Chills Nose: denies: Rhinorrhea / runny nose, Congestion Throat: denies: Sore throat GI: denies: Vomiting, Diarrhea Skin: denies: Rash Musculoskeletal: denies: Neck pain, Back pain Neurologic: denies: Headache PD PAST MEDICAL HISTORY - Past Medical History Past Medical History: Yes Cardiovascular: Hypertension Endocrine/Autoimmune: HyPOthyroidism - Past Surgical History Past Surgical History: Yes General: Hiatal hernia repair Cardiovascular: CABG - Present Medications Home Medications: Ambulatory Orders Medication Instructions Recorded Confirmed Donepezil [Aricept] 10 mg PO DAILY 05/12/18 12/31/21 Levothyroxine Sodium [Levoxyl] 150 mcg PO DAILY 05/12/18 12/31/21 Metoprolol Succinate 25 mg PO DAILY 05/12/18 12/31/21 Montelukast Sodium 10 mg PO DAILY 05/12/18 12/31/21 Gabapentin [Neurontin] 1 tab PO TID 08/12/21 12/31/21 Atorvastatin Calcium [Lipitor] 1 tab PO DAILY 08/13/21 12/31/21 Multivitamin 1 each PO DAILY 08/13/21 12/31/21 - Allergies Allergies/Adverse Reactions: Allergies Allergy/AdvReac Type Severity Reaction Status Date / Time lisinopril AdvReac Mild cough Verified 12/31/21 14:38 - Social History Does the pt smoke?: Yes Smoking Status: Current every day smoker Does the pt drink ETOH?: No Does the pt have substance abuse?: No - Immunizations Immunizations are current?: Yes PD ED PE NORMAL - Vitals Vital signs reviewed: Yes - General General: Alert and oriented X 3, No acute distress - HEENT HEENT: PERRL, Moist mucous membranes - Neck Neck: Supple, no meningeal sign - Cardiac Cardiac: RRR, Strong equal pulses - Respiratory Respiratory: No respiratory distress, Clear bilaterally - Abdomen Abdomen: Soft, Non tender, Non distended - Derm Derm: Warm and dry - Extremities Extremities: No deformity - Neuro Neuro: Alert and oriented X 3, assembler ping pong table 2-12 intact, No motor deficit, No sensory deficit, Normal speech Eye Opening: Spontaneous Motor: Obeys Commands Verbal: Oriented GCS Score: 15 - Psych Psych: Normal mood, Normal affect - Free text exam Free text exam: NIH stroke scale of 0 Results - Vitals Vitals: Vital Signs - 24 hr 12/31/21 12/31/21 12/31/21 14:38 15:54 17:05 Temperature 36.5 C Heart Rate 60 59 L 57 L Respiratory 16 14 Rate Blood Pressure 88/56 L 130/71 O2 Saturation 97 97 100 12/31/21 17:36 Temperature Heart Rate 58 L Respiratory 15 Rate Blood Pressure 143/80 H O2 Saturation 99 Oxygen O2 Source Room air - Labs Labs: Laboratory Tests 12/31/21 12/31/21 12/31/21 14:53 14:53 14:53 WBC 9.4 RBC 4.68 L Hgb 13.5 L Hct 40.1 L MCV 85.7 MCH 28.8 MCHC 33.7 RDW 15.0 Plt Count 255 MPV 8.8 Neut # (Auto) 6.7 H Lymph # (Auto) 1.6 [place] # (Auto) 1.0 Eos # (Auto) 0.1 Baso # (Auto) 0.0 Absolute Nucleated RBC 0.00 Nucleated RBC % 0.0 PT 35.1 H INR 3.2 H APTT 43.2 H Sodium 131 L Potassium 4.3 Chloride 96 L Carbon Dioxide 25 Anion Gap 10.0 BUN 23 H Creatinine 1.3 H Estimated GFR (MDRD) 52 L Glucose 124 H Calcium 9.3 Total Bilirubin 1.1 H AST 34 ALT 26 Alkaline Phosphatase 101 Total Protein 6.8 Albumin 3.7 Globulin 3.1 Albumin/Globulin Ratio 1.2 Lipase 29 Urine Color Urine Clarity Urine pH Ur Specific [place] Urine Protein Urine Glucose (UA) Urine Ketones Urine Occult Blood Urine Nitrite Urine Bilirubin Urine Urobilinogen Ur Leukocyte Esterase Ur Microscopic Review Urine Culture Comments 12/31/21 17:05 WBC RBC Hgb Hct MCV MCH MCHC RDW Plt Count MPV Neut # (Auto) Lymph # (Auto) [place] # (Auto) Eos # (Auto) Baso # (Auto) Absolute Nucleated RBC Nucleated RBC % PT INR APTT Sodium Potassium Chloride Carbon Dioxide Anion Gap BUN Creatinine Estimated GFR (MDRD) Glucose Calcium Total Bilirubin AST ALT Alkaline Phosphatase Total Protein Albumin Globulin Albumin/Globulin Ratio Lipase Urine Color YELLOW Urine Clarity CLEAR Urine pH 6.0 Ur Specific [place] 1.010 Urine Protein NEGATIVE Urine Glucose (UA) NEGATIVE Urine Ketones NEGATIVE Urine Occult Blood NEGATIVE Urine Nitrite NEGATIVE Urine Bilirubin NEGATIVE Urine Urobilinogen 0.2 (NORMAL) Ur Leukocyte Esterase NEGATIVE Ur Microscopic Review NOT INDICATED Urine Culture Comments NOT INDICATED - Rads (name of study) CT angio head Radiology: Final report received, EMP read contemporaneously, See rad report CT angio neck Radiology: Final report received, EMP read contemporaneously, See rad report PD MEDICAL DECISION MAKING - ED course Complexity details: reviewed results, re-evaluated patient, considered differential, d/w patient, d/w family, d/w wireless sales consultant ED course: 86-year-old male was found to have bilateral subdural hygromas. Has an acute hemorrhagic component on the right side. He is on warfarin, INR is over 3. Given 2 units of FFP. GCS 15. I discussed the case with Joseluis, Dr. Cristobal Otoole, emergency department who graciously accepts in transfer. Patient will be transferred for further care. This document was made in part using voice recognition software. While efforts are made to proofread this document, sound alike and grammatical errors may occur. IMPRESSION: Approximately 90% stenosis seen involving the right proximal internal carotid artery. Please consider vascular surgery consultation. The definitely layer gland also opacity can be seen within the lungs. Please consider pulmonary edema. Acute right subdural hemorrhage partially seen. IMPRESSION: A mild degree of acute subdural hemorrhage can be seen on the right. 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 No significant intracranial arterial abnormalities are seen. Departure - Departure Disposition: 02 Transfer Acute Care Hosp Clinical Impression: Subdural hemorrhage, Supratherapeutic INR, Subdural hygroma Carotid stenosis Qualifiers: Laterality: right Qualified Code(s): I65.21 - Occlusion and stenosis of right carotid artery Condition: Stable
[2021-12-31] MEDS ORDERED: IOPAMIDOL-300 100 ML VIAL ONE (16:18)
[2021-12-31] MEDS ORDERED: IOVERSOL 320 50 ML VIAL IVP ONE (16:37)
[2021-12-31] MEDS ORDERED: IOPAMIDOL-300 100 ML VIAL IVP ONE (16:52)
[2021-12-31 17:10] LABS: BILIRUBIN,URINE NEGATIVE (NEGATIVE); GLUCOSE, URINE (UA) NEGATIVE (NEGATIVE); KETONES,URINE (UA) NEGATIVE (NEGATIVE); LEUKOCYTE ESTERASE, URINE NEGATIVE (NEGATIVE); NITRITE,URINE NEGATIVE (NEGATIVE); OCCULT BLOOD,URINE NEGATIVE (NEGATIVE); PROTEIN,URINE NEGATIVE (NEGATIVE); UROBILINOGEN,URINE 0.2 (NORMAL) E.U./dL (NORMAL)
[2021-12-31 17:11] LABS: CLARITY,URINE CLEAR (CLEAR)
--- NOTE | 2021-12-31 17:21 | CT Report ---
PROCEDURE: ANGIO HEAD W/WO INDICATIONS: generalized weakness, h/o stroke CONTRAST: IV CONTRAST: Optiray 320 ml: 100 PO CONTRAST: *NO PO CONTRAST TECHNIQUE: Precontrast 4.5 mm thick angled axial sections acquired from the foramen magnum to the vertex. Afte r the administration of intravenous contrast, 1 mm thick sections acquired through the [place] of [place] is. Postcontrast 4.5 mm thick sections then re-acquired from the foramen magnum to the vertex. 3-di mensional spyqawj-cktnhlzwb-udzgxhoxpz (MIP) and/or volume rendering reformats were acquired of the c entral intracranial vasculature. For radiation dose reduction, the following was used: automated ex posure control, adjustment of mA and/or kV according to patient size. COMPARISON: Correlation is made with prior noncontrasted CT, 05/12/2018. Correlation is also made with the accompanying neck CT angiogram, 12/31/2021 FINDINGS: Image quality: Excellent. Anterior circulation: Intracranial internal carotid arteries are normal in size and flow. The flow within the paired anterior cerebral arteries is normal and symmetric. The flow within the middle cer ebral arteries is normal and symmetric. The anterior communicating artery is seen. No aneurysms are seen. Posterior circulation: Visualized portions of the vertebral arteries demonstrate normal caliber, and join to form a normal appearing basilar artery. Flow within the posterior cerebral arteries is norm al and symmetric. No aneurysms are seen. CSF spaces: Ventricles are normal in size and shape. Basal cisterns are patent. No extra-axial flu id collections. Brain: A mild degree of acute subdural hemorrhage can be seen along the lateral aspect of the right s ubdural space. Bilateral chronic subdural hygromas are also seen. No midline shift. Thayer-white matter interface appears intact. Skull and face: Calvarium and facial bones appear intact, without suspicious lesions. Sinuses: Visualized sinuses and mastoids are clear. IMPRESSION: A mild degree of acute subdural hemorrhage can be seen on the right. 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 No significant intracranial arterial abnormalities are seen. No: Acute hemorrhage discussed by telephone with Dr. Sosa at 4:19 PM [place] time on 12/23/2021. Reviewed by: Clement Almeida MD on 12/31/2021 4:20 PM [facility] Approved by: Clement Almeida MD on 12/31/2021 4:20 PM [facility] Station ID: [id number]
--- NOTE | 2021-12-31 17:25 | CT Report ---
PROCEDURE: ANGIO NECK W INDICATIONS: generalized weakness, h/o stroke CONTRAST: IV CONTRAST: Optiray 320 ml: 100 PO CONTRAST: *NO PO CONTRAST TECHNIQUE: After the administration of intravenous contrast, 1.5 mm axial sections acquired from the aortic arch to the [place]. Coronal 3-D maximum intensity projection (MIP) and/or volume rendering ref ormats were then performed. For radiation dose reduction, the following was used: automated exposur e control, adjustment of mA and/or kV according to patient size. COMPARISON: Correlation is made with the accompanying head CT angiogram, 12/23/2021. FINDINGS: Image quality: Excellent. Carotid system: The great vessels demonstrate a conventional anatomy as they arise from the aortic a rch. The origins of the common carotid arteries appear patent. The common carotid arteries demonstr ate normal calibers and courses. The bifurcation regions demonstrate atelectatic calcification and i rregularity. There is at least a percent stenosis seen involving the right proximal internal carotid artery, as on series 2 image 162. On the left, there is approximately 50% narrowing. The more distal internal carotid arteries demonstrate normal course and caliber. Posterior circulation: The origins of the vertebral arteries appear patent. The more superior porti ons of the vertebral arteries demonstrate normal course and caliber. They join to form a normal appe aring basilar artery. Soft tissues: Visualized neck soft tissues demonstrate no suspicious abnormalities. The thyroid is normal in size and there are no incidental findings. Mild layering groundglass opacity can be seen wi thin the lungs. Mediastinal clips are partially seen. Bilateral subdural hygromas and a mild amount of acute hemorrhage seen on the right. Bones: No suspicious bony lesions. Visualized cervical spine appears normally aligned. At least o ne sternotomy wire can be seen. Moderate to severe cervical spine degenerative change seen. IMPRESSION: Approximately 90% stenosis seen involving the right proximal internal carotid artery. Please consider vascular surgery consultation. The definitely layer gland also opacity can be seen within the lungs. Please consider pulmonary edema . Acute right subdural hemorrhage partially seen. Incidental note is made of: Moderate to severe cervical spine degenerative change CABG The estimate of stenosis included in the report of the imaging study was calculated using the NASCET method Note: Acute intracranial hemorrhage discussed by telephone with Dr. Sosa at 4:19 PM [place] time on 12/31/2021. Reviewed by: Clement Almeida MD on 12/31/2021 4:23 PM [facility] Approved by: Clement Almeida MD on 12/31/2021 4:23 PM [facility] Station ID: [id number]
[2021-12-31 19:03] VITALS: BP 159/91
[2021-12-31 19:14] LABS: B. PARAPERTUSSIS- RESP PCR PAN NOT DETECTED; B. PERTUSSIS- RESP PCR PANEL NOT DETECTED; C. PNEUMONIAE- RESP PCR PANEL NOT DETECTED; CORONAVIRUS 229E-RESP PCR NOT DETECTED; CORONAVIRUS HKU1-RESP PCR NOT DETECTED; CORONAVIRUS NL63-RESP PCR NOT DETECTED; CORONAVIRUS OC43-RESP PCR NOT DETECTED; HUMAN METAPNEUMOVIRUS NOT DETECTED; INFLUENZA A- RESP PCR PANEL NOT DETECTED; INFLUENZA B - RESP PCR PANEL NOT DETECTED; M. PNEUMONIAE- RESP PCR PANEL NOT DETECTED; PARAINFLUENZA VIRUS 1 NOT DETECTED; PARAINFLUENZA VIRUS 2 NOT DETECTED; PARAINFLUENZA VIRUS 3 NOT DETECTED; PARAINFLUENZA VIRUS 4 NOT DETECTED; RHINOVIRUS/ENTEROVIRUS NOT DETECTED; RSV- RESP PCR PANEL NOT DETECTED; SARS-CoV-2 -RESP PCR PANEL NOT DETECTED
== END 2021-12-31 19:35 | disposition short-term general hospital (02) ==
LOC: ED 14:25
DX: I62.00 Nontraumatic subdural hemorrhage, unspecified (principal); R53.1 Weakness; G96.08 Other cranial cerebrospinal fluid leak; R79.1 Abnormal coagulation profile; I65.21 Occlusion and stenosis of right carotid artery; F17.200 Nicotine dependence, unspecified, uncomplicated; Z20.822 Contact with and (suspected) exposure to COVID-19; Z79.01 Long term (current) use of anticoagulants
CPT/HCPCS: 36415; 36430; 70496; 70498; 80053; 81003; 83690; 85025; 85610; 85730; 86850; 86900; 86901; 87633; 99284; 99285; P9017; Q9967; 81001; 87086

== ENCOUNTER 2021-12-31 19:37 | Outpatient (CLI) | payer MEDICARE, BC | END 2021-12-31 19:38 | disposition short-term general hospital (02) | LOC: EMS 19:37 | PROVIDERS: ATTEND Emergency Medicine | DX: I62.01 Nontraumatic acute subdural hemorrhage (principal); Z79.01 Long term (current) use of anticoagulants | CPT/HCPCS: A0425; A0426 ==

== ENCOUNTER 2022-01-29 13:53 | Outpatient (CLI) | payer MEDICARE, BC | END 2022-01-29 13:54 | disposition home or self-care (01) | LOC: EMS 13:53 | PROVIDERS: ATTEND Specialist | DX: I62.03 Nontraumatic chronic subdural hemorrhage (principal); R41.0 Disorientation, unspecified; R62.7 Adult failure to thrive | CPT/HCPCS: A0425; A0429 ==

== ENCOUNTER 2022-07-07 23:48 | Emergency (ER) | payer MEDICARE, BC ==
[2022-07-08 00:29] VITALS: BP 115/100
--- NOTE | 2022-07-08 01:41 | ED Physician Documentation ---
History of Present Illness - Stated complaint Stated Complaint: PX FROM CATHETER - Chief complaint Chief Complaint: Abd Pain - History obtained from History obtained from: Patient, Family () - Additonal information Additional information: 86yM on hospice with chronic indwelling evans p/w inability to drain today. evans is about 3 weeks old and has significant residue in the tube. tried to flush it at home without relief. patient states he feels fullness and pain at the tip of the penis gradual onset since he noticed it wasn't draining. denies fevers, abdominal or back pain . Review of Systems Constitutional: denies: Fever GI: denies: Abdominal Pain : reports: Evans Problem Musculoskeletal: denies: Back pain PD PAST MEDICAL HISTORY - Past Medical History Cardiovascular: Hypertension, High cholesterol, Coronary artery disease, Atrial fibrillation Neuro: Seizure disorder Endocrine/Autoimmune: HyPOthyroidism Musculoskeletal: Osteoarthritis - Past Surgical History Past Surgical History: Yes General: Hiatal hernia repair Cardiovascular: CABG - Present Medications Home Medications: Ambulatory Orders Medication Instructions Recorded Confirmed Levothyroxine Sodium [Levoxyl] 150 mcg PO QDAC 05/12/18 01/09/22 Metoprolol Succinate 25 mg PO DAILY 05/12/18 01/09/22 Montelukast Sodium 10 mg PO DAILY 05/12/18 01/09/22 Gabapentin [Neurontin] 1,200 mg PO TID 08/12/21 01/09/22 Donepezil HCl [Aricept] 10 mg PO QPM 01/09/22 01/09/22 Levetiracetam [Keppra] 500 mg PO BID 01/09/22 01/09/22 Acetaminophen [Tylenol] 650 mg PO Q4HR PRN tablet 01/29/22 Warfarin [Coumadin] 5 mg PO [id number]@1400 tablet 01/29/22 Warfarin [Coumadin] 5 mg PO WeSa@1400 tablet 01/29/22 - Allergies Allergies/Adverse Reactions: Allergies Allergy/AdvReac Type Severity Reaction Status Date / Time lisinopril AdvReac Mild cough Verified 07/08/22 00:29 - Social History Does the pt smoke?: Yes Smoking Status: Unknown if ever smoked Does the pt drink ETOH?: No Does the pt have substance abuse?: No - Immunizations Immunizations are current?: Yes PD ED PE NORMAL - Vitals Vital signs reviewed: Yes - General General: Alert and oriented X 3, No acute distress, Well developed/nourished - HEENT HEENT: Atraumatic, PERRL, EOMI - Neck Neck: Supple, no meningeal sign - Male Male : Other (16fr evans in place without any urine in bag. significant sediment evident in tubing) - Derm Derm: Normal color, Warm and dry - Extremities Extremities: No deformity - Neuro Neuro: Alert and oriented X 3, No motor deficit, No sensory deficit - Psych Psych: Normal mood, Normal affect Results - Vitals Vitals: Vital Signs - 24 hr 07/08/22 00:26 Temperature 35.8 C L Heart Rate 74 Respiratory 16 Rate Blood Pressure 115/100 H O2 Saturation 100 Oxygen O2 Source Room air PD MEDICAL DECISION MAKING - ED course ED course: 86yM presented for evans problem- not draining. evans changed with relief of symptoms. straw colored urine in bag. plan to f/u with Dr. Meyer. return precautions and evans care instructions given. Departure - Departure Clinical Impression: Evans catheter problem Condition: Good Instructions: Catheter Indwelling Urinary Dc Comments: You were seen in the ED for a evans catheter problem. The evans was changed out to another 16fr evans. Please follow up with Dr. Meyer as needed and return to the ED if you have other concerns.
== END 2022-07-08 02:16 | disposition home or self-care (01) ==
LOC: ED 23:48
DX: T83.091A Other mechanical complication of indwelling urethral catheter, initial encounter (principal); X58.XXXA Exposure to other specified factors, initial encounter
CPT/HCPCS: 51702; 99282; 99283

== ENCOUNTER 2022-08-20 11:08 | Outpatient (CLI) | payer MEDICARE, BC ==
[2022-08-20 11:54] LABS: ALBUMIN 3.1 g/dL (3.2-5.5); BILIRUBIN,TOTAL 0.7 mg/dL (0.2-1.0); CREATININE 0.7 mg/dL (0.6-1.2); TOTAL PROTEIN 6.1 g/dL (6.7-8.2)
== END 2022-08-20 11:09 | disposition home or self-care (01) ==
LOC: LAB.R 11:08
PROVIDERS: ATTEND Family Medicine
DX: E03.9 Hypothyroidism, unspecified (principal); M12.89 Other specific arthropathies, not elsewhere classified, multiple sites; K59.00 Constipation, unspecified; Z12.5 Encounter for screening for malignant neoplasm of prostate; Z79.01 Long term (current) use of anticoagulants; L03.116 Cellulitis of left lower limb
CPT/HCPCS: 80053; 82306; G0103; 84153; 85025; 85610

== ENCOUNTER 2022-08-21 08:00 | Outpatient (CLI) | payer MEDICARE, BC ==
[2022-08-21 10:18] LABS: CHOL/HDL RATIO 3.6 (<5.0); CHOLESTEROL 158 mg/dL; HDL CHOLESTEROL 44 mg/dL; LDL CHOLESTEROL,CALCULATED 101 mg/dL; LDL/HDL RATIO 2.3 (<3.6); MAGNESIUM 1.7 mg/dL (1.7-2.8); TRIGLYCERIDES 67 mg/dL; VLDL CHOLESTEROL 13 mg/dL
[2022-08-21 10:27] LABS: T4 (THYROXINE) 12.58 ug/dL (6.09-12.23)
[2022-08-21 10:30] LABS: THYROID STIMULATING HORMONE < 0.08 uIU/mL (0.34-5.60)
== END 2022-08-21 23:59 | disposition home or self-care (01) ==
LOC: LAB.R 08:00
PROVIDERS: ATTEND Family Medicine
DX: I69.351 Hemiplegia and hemiparesis following cerebral infarction affecting right dominant side (principal); I10 Essential (primary) hypertension; L03.116 Cellulitis of left lower limb
CPT/HCPCS: 80061; 82607; 83721; 83735; 84436; 84443

== ENCOUNTER 2022-11-19 11:58 | Outpatient (CLI) | payer MEDICARE, BC ==
[2022-11-19 12:05] LABS: BASOPHILS % (AUTO) 0.3 %; EOSINOPHILS # (AUTO) 0.2 10^3/uL (0.0-0.7); EOSINOPHILS % (AUTO) 3.9 %; HCT - HEMATOCRIT 41.1 % (42.0-52.0); HGB - HEMOGLOBIN 13.2 g/dL (14.0-18.0); LYMPHOCYTES % (AUTO) 34.2 %; MEAN CORPUSCULAR HEMOGLOBIN 28.5 pg (27.0-31.0); MEAN CORPUSCULAR HGB CONC 32.1 g/dL (32.0-36.0); MEAN CORPUSCULAR VOLUME 88.8 fL (80.0-94.0); MONOCYTES # (AUTO) 0.8 10^3/uL (0.0-1.0); MONOCYTES % (AUTO) 13.5 %; NEUTROPHILS # (AUTO) 2.8 10^3/uL (1.5-6.6); NEUTROPHILS % (AUTO) 47.8 %; PLT - PLATELET COUNT 234 10^3/uL (130-450); RED BLOOD COUNT 4.63 10^6/uL (4.70-6.10); RED CELL DISTRIBUTION WIDTH 14.9 % (12.0-15.0); WHITE BLOOD COUNT 5.8 x10^3/uL (4.8-10.8)
[2022-11-19 12:32] LABS: ALBUMIN 3.2 g/dL (3.2-5.5); ALBUMIN/GLOBULIN RATIO 1.1 (1.0-2.2); BILIRUBIN,TOTAL 1.5 mg/dL (0.2-1.0); CALCIUM 8.7 mg/dL (8.5-10.3); CREATININE 0.6 mg/dL (0.6-1.2); POTASSIUM 4.4 mmol/L (3.5-5.0); TOTAL PROTEIN 6.2 g/dL (6.7-8.2)
[2022-11-19 12:50] LABS: THYROID STIMULATING HORMONE 0.09 uIU/mL (0.34-5.60)
[2022-11-19 12:52] LABS: FREE T4 (FREE THYROXINE) 1.7 ng/dL (0.58-1.64)
== END 2022-11-19 11:59 | disposition home or self-care (01) ==
LOC: LAB.R 11:58
PROVIDERS: ATTEND Family Medicine
DX: E03.4 Atrophy of thyroid (acquired) (principal); E86.9 Volume depletion, unspecified; K59.00 Constipation, unspecified
CPT/HCPCS: 80053; 84153; 84439; 84443; 85025; 85610

== ENCOUNTER 2023-06-11 08:00 | Outpatient (CLI) | payer MEDICARE, BC ==
[2023-06-11 10:44] LABS: BASOPHILS % (AUTO) 0.5 %; EOSINOPHILS # (AUTO) 0.3 10^3/uL (0.0-0.7); EOSINOPHILS % (AUTO) 3.3 %; HCT - HEMATOCRIT 37.5 % (42.0-52.0); HGB - HEMOGLOBIN 12.4 g/dL (14.0-18.0); LYMPHOCYTES # (AUTO) 2.2 10^3/uL (1.5-3.5); MEAN CORPUSCULAR HEMOGLOBIN 29.9 pg (27.0-31.0); MEAN CORPUSCULAR HGB CONC 33.1 g/dL (32.0-36.0); MEAN CORPUSCULAR VOLUME 90.4 fL (80.0-94.0); MEAN PLATELET VOLUME 9.2 fL (7.4-11.4); MONOCYTES # (AUTO) 0.9 10^3/uL (0.0-1.0); MONOCYTES % (AUTO) 11.7 %; NEUTROPHILS # (AUTO) 4.4 10^3/uL (1.5-6.6); NEUTROPHILS % (AUTO) 56.2 %; PLT - PLATELET COUNT 254 10^3/uL (130-450); RED BLOOD COUNT 4.15 10^6/uL (4.70-6.10); RED CELL DISTRIBUTION WIDTH 15.9 % (12.0-15.0); WHITE BLOOD COUNT 7.9 x10^3/uL (4.8-10.8)
[2023-06-11 11:09] LABS: ALBUMIN 3.4 g/dL (3.2-5.5); ALBUMIN/GLOBULIN RATIO 1.3 (1.0-2.2); BILIRUBIN,TOTAL 1.2 mg/dL (0.2-1.0); CREATININE 0.5 mg/dL (0.6-1.3); MAGNESIUM 1.5 mg/dL (1.7-2.3); POTASSIUM 4.1 mmol/L (3.5-4.5)
[2023-06-11 11:13] LABS: THYROID STIMULATING HORMONE 0.36 uIU/mL (0.34-5.60)
== END 2023-06-11 23:58 | disposition home or self-care (01) ==
LOC: LAB.R 08:00
PROVIDERS: ATTEND Family Medicine
DX: E87.1 Hypo-osmolality and hyponatremia (principal); E55.9 Vitamin D deficiency, unspecified; Z79.899 Other long term (current) drug therapy
CPT/HCPCS: 80053; 82306; 82607; 82746; 83735; 84443; 85025

== ENCOUNTER 2023-07-14 08:00 | Outpatient (CLI) | payer MEDICARE, BC | END 2023-07-14 23:59 | disposition home or self-care (01) | LOC: LAB 08:00 | PROVIDERS: ATTEND Urology | DX: N31.9 Neuromuscular dysfunction of bladder, unspecified (principal) | CPT/HCPCS: 87077; 87086; 87181 ==

== ENCOUNTER 2023-07-19 13:46 | Outpatient (CLI) | payer MEDICARE, BC | END 2023-07-19 13:47 | disposition short-term general hospital (02) | LOC: EMS 13:46 | DX: R10.30 Lower abdominal pain, unspecified (principal) | CPT/HCPCS: A0425; A0427 ==